=== PATIENT | male | born 1955 | race Caucasian/White ===

== ENCOUNTER 2019-06-14 16:42 | Emergency (ER) | payer MEDICAID, OTHER ==
[~2019-06-14] VITALS: Ht 177.8 cm; Wt 63.5 kg
[2019-06-14 17:01] VITALS: BP 114/70
[2019-06-14] MEDS ORDERED: SODIUM CHLORIDE 0.9% 1,000 ML IV ONE (17:20)
[2019-06-14] MEDS ORDERED: ALBUTEROL SULF 2.5 MG/0.5ML(0.5%) NEB SOLN NEB ONE (17:30)
[2019-06-14] MEDS ORDERED: methylPREDNISolone SOD SUCC 125 MG/2 ML VL IV ONE (17:30)
[2019-06-14] MEDS ORDERED: IPRATROPIUM BROM 0.5 MG/2.5ML INH SOL NEB ONE (17:30)
[2019-06-14 18:00] LABS: Basophils # (auto) 0 uL; Basophils % (auto) 0.4 % (0.0-2.0); Eosinophils # (auto) 0.1 uL; Eosinophils % (auto) 0.5 % (0.0-7.0); Hematocrit 49.6 % (41.0-53.0); Hemoglobin 16.6 g/dL (13.5-17.5); Lymphocytes # (auto) 1.5 uL; Mean Corpuscular Hemoglobin 29.5 pg (28.0-32.0); Mean Corpuscular Hgb Conc. 33.5 g/dL (32.0-36.0); Mean Corpuscular Volume 87.9 fL (80.0-100.0); Monocytes # (auto) 1.5 uL; Neutrophils # (auto) 9.6 uL; Neutrophils % (auto) 75.1 % (37.0-80.0); Nucleated Red Blood Cells % 0.1 %; Platelet Count (auto) 268 10^3/uL (140-450); Red Blood Cells 5.64 10^6/uL (4.5-5.90); Red Cell Distribution Width 14.9 % (11.8-14.3); White Blood Cell 12.8 10^3/uL (4.4-10.8)
[2019-06-14 18:15] LABS: Albumin 3.6 g/dL (3.4-5.0); Calcium 9.3 mg/dL (8.5-10.1)
[2019-06-14 18:17] LABS: BUN/Creatinine Ratio 13.6
[2019-06-14 18:19] LABS: Bilirubin, Total 0.7 mg/dL (0.2-1.0); Total Protein 7.7 g/dL (6.4-8.2)
[2019-06-15] MEDS ORDERED: ATOR10TA52 PO (16:58)
[2019-06-15] MEDS ORDERED: CHOL20007 PO (16:58)
[2019-06-15] MEDS ORDERED: IPRAAER6 IN (19:08)
[2019-06-15] MEDS ORDERED: BUDE1POW9 XX (19:08)
== END 2019-06-14 20:10 | disposition home or self-care (01) ==
LOC: EDBD 16:42 → ER 16:50
DX: J44.1 Chronic obstructive pulmonary disease with (acute) exacerbation (principal); F17.210 Nicotine dependence, cigarettes, uncomplicated
CPT/HCPCS: 36415; 71045; 80053; 85025; 93005

== ENCOUNTER 2019-06-15 11:20 | Inpatient (IN) | payer MEDICAID ==
[~2019-06-15] VITALS: Ht 182.9 cm; Wt 60.4 kg
[2019-06-15] MEDS ORDERED: SODIUM CHLORIDE 0.9% 1,000 ML IV ONE (11:33)
[2019-06-15] MEDS ORDERED: cefTRIAXone 1GM/50ML D5W 50 ML IV ONE (11:45)
[2019-06-15] MEDS ORDERED: IPRATROPIUM BROM 0.5 MG/2.5ML INH SOL NEB ONE (11:45)
[2019-06-15] MEDS ORDERED: ALBUTEROL SULF 2.5 MG/0.5ML(0.5%) NEB SOLN NEB ONE (11:45)
[2019-06-15] MEDS ORDERED: AZITHROMYCIN 500MG/ 250ML 250 ML IV ONE (11:45)
[2019-06-15] MEDS ORDERED: methylPREDNISolone SOD SUCC 125 MG/2 ML VL IV ONE (11:45)
[2019-06-15 12:13] LABS: Basophils # (auto) 0.1 uL; Basophils % (auto) 0.6 % (0.0-2.0); Eosinophils # (auto) 0 uL; Hematocrit 47.4 % (41.0-53.0); Lymphocytes # (auto) 1.7 uL; Lymphocytes % (auto) 8.9 % (10.0-50.0); Mean Corpuscular Hemoglobin 29.7 pg (28.0-32.0); Mean Corpuscular Hgb Conc. 33.7 g/dL (32.0-36.0); Mean Corpuscular Volume 87.9 fL (80.0-100.0); Monocytes # (auto) 2.5 uL; Neutrophils % (auto) 77.5 % (37.0-80.0); Nucleated Red Blood Cells % 0.1 %; Platelet Count (auto) 253 10^3/uL (140-450); Red Cell Distribution Width 14.8 % (11.8-14.3); White Blood Cell 19.3 10^3/uL (4.4-10.8)
[2019-06-15 12:31] LABS: Alanine Aminotransferase 15 U/L (16-61); Albumin 3.4 g/dL (3.4-5.0); Anion Gap 8 (5-15); Aspartate Aminotransferase 23 U/L (15-37); Blood Urea Nitrogen 12 mg/dL (7-18); Calcium 9.1 mg/dL (8.5-10.1); Carbon Dioxide 26 mmol/L (21-32); Chloride 103 mmol/L (98-107); Glucose 136 mg/dL (74-106); Sodium 137 mmol/L (136-145)
[2019-06-15 12:35] LABS: INR 1.14 (0.9-1.15); Partial Thromboplastin Time 25.5 sec (23.64-32.05)
[2019-06-15 12:36] LABS: Alkaline Phosphatase 94 U/L (45-117); BUN/Creatinine Ratio 12.2; GFR African American 99 mL/min; GFR Non-African American 82 mL/min; Total Protein 7.8 g/dL (6.4-8.2)
[2019-06-15 12:39] LABS: Potassium 4.3 mmol/L (3.5-5.1)
[2019-06-15] MEDS ORDERED: ACETAMINOPHEN 500 MG TAB PO PRN (14:15)
[2019-06-15] MEDS ORDERED: NITROGLYCERIN 0.4 MG SL TAB SL PRN (14:15)
[2019-06-15] MEDS ORDERED: MORPHINE SULF INJ 2 MG/ML SYRINGE 1ML IV PRN (14:15)
[2019-06-15] MEDS ORDERED: traMADol HCL 50 MG TAB PO PRN (14:15)
[2019-06-15] MEDS ORDERED: DEXTROSE (50%) 50ML SYRG IV PRN (14:15)
[2019-06-15] MEDS ORDERED: LACTULOSE 20Gm/30ML SOLN PO PRN (14:15)
[2019-06-15] MEDS ORDERED: TEMAZEPAM 15 MG CAP PO PRN (14:15)
[2019-06-15] MEDS ORDERED: ALBUTEROL SULF 2.5 MG/0.5ML(0.5%) NEB SOLN NEB PRN (14:15)
[2019-06-15] MEDS ORDERED: PROMETHAZINE HCL 25 MG/ML 1ML IV PRN (14:15)
[2019-06-15 14:17] LABS: Urine Bacteria NONE SEEN /hpf (None Seen); Urine Blood TRACE /uL (Negative); Urine Mucus FEW (None Seen); Urine WBC 1 /hpf (0 - 3)
[2019-06-15] MEDS: SODIUM CHLORIDE 0.9% 1,000 ML IV SCH (14:40)
--- NOTE | 2019-06-15 16:05 | NUR ---
Telemetry admit from ER COLIN KANG admitted to Telemetry unit after SBAR received. Patient oriented to Bianca Toledo, primary RN, unit, room, bed, and unit policies regarding patient care and visiting hours. Patient now on continuous telemetry monitoring, tele box #HC 17 and telemetry reading on arrival to unit is SINUS TACHYCARDIA 106 BPM WITH BBB. All questions and concerns addressed, patient verbalized understanding. Bed locked in the lowest position. Bed rails up up x2. Call light in reach.
[2019-06-15 16:50] VITALS: BP 122/81
[2019-06-15] MEDS ORDERED: CHOL20007 PO (16:58)
[2019-06-15] MEDS ORDERED: ATOR10TA52 PO (16:58)
[2019-06-15] MEDS: ACCU-CHEK COMFORT CURVE STRIP VI SCH ×2 (17:34→21:40)
[2019-06-15] MEDS: methylPREDNISolone SOD SUCC 40 MG/ML VL IV SCH ×2 (17:35→23:58)
[2019-06-15] MEDS: ALBUTEROL SULF 2.5 MG/0.5ML(0.5%) NEB SOLN NEB SCH (18:46)
[2019-06-15] MEDS: IPRATROPIUM BROM 0.5 MG/2.5ML INH SOL NEB SCH (18:46)
--- NOTE | 2019-06-15 18:48 | NUR ---
CLOSING NOTE Patient is awake and alert. No S/S of distress/SOB or pain. Bed locked in the lowest position. Bed rails up x2. Call light in reach. Will endorse care to night nurse.
[2019-06-15] MEDS ORDERED: BUDE1POW9 XX (19:08)
[2019-06-15] MEDS ORDERED: IPRAAER6 IN (19:08)
--- NOTE | 2019-06-15 19:23 | NUR ---
Opening Shift Note Assumed care of patient, awake and alert x4. No S/S of distress/SOB or pain. Call light is within reach, bed is in lowest position, side rails up x3. Instructed on POC and to call for assist PRN. All questions and concerns answered, will continue to monitor for changes Q1hr and PRN.
[2019-06-15 22:36] VITALS: BP 127/75
[2019-06-15 23:23] VITALS: BP 127/75
[2019-06-16] MEDS: ALBUTEROL SULF 2.5 MG/0.5ML(0.5%) NEB SOLN NEB SCH ×5 (00:18→23:40)
[2019-06-16] MEDS: IPRATROPIUM BROM 0.5 MG/2.5ML INH SOL NEB SCH ×5 (00:18→23:39)
[2019-06-16] MEDS: SODIUM CHLORIDE 0.9% 1,000 ML IV SCH ×2 (02:15→17:26)
[2019-06-16 05:26] VITALS: BP 128/19
[2019-06-16] MEDS: methylPREDNISolone SOD SUCC 40 MG/ML VL IV SCH ×4 (06:01→23:20)
[2019-06-16 06:15] LABS: Basophils # (auto) 0 uL; Basophils % (auto) 0.1 % (0.0-2.0); Eosinophils # (auto) 0 uL; Hematocrit 41.3 % (41.0-53.0); Hemoglobin 14.2 g/dL (13.5-17.5); Lymphocytes # (auto) 0.6 uL; Lymphocytes % (auto) 5.1 % (10.0-50.0); Mean Corpuscular Hgb Conc. 34.3 g/dL (32.0-36.0); Mean Corpuscular Volume 87.3 fL (80.0-100.0); Monocytes # (auto) 0.3 uL; Monocytes % (auto) 2.2 % (0.0-12.0); Neutrophils # (auto) 11.2 uL; Neutrophils % (auto) 92.6 % (37.0-80.0); Platelet Count (auto) 220 10^3/uL (140-450); Red Blood Cells 4.74 10^6/uL (4.5-5.90); Red Cell Distribution Width 14.5 % (11.8-14.3); White Blood Cell 12.1 10^3/uL (4.4-10.8)
[2019-06-16] MEDS: ACCU-CHEK COMFORT CURVE STRIP VI SCH ×4 (07:00→22:34)
--- NOTE | 2019-06-16 07:30 | NUR ---
Opening Shift Note Assumed care of patient. Patient is awake and alert. No S/S of distress/SOB or pain. Instructed on POC and to call for assist PRN, will continue to monitor. Bed locked in the lowest position. Bed rails up x2. Call light in reach.
[2019-06-16 08:56] VITALS: BP 104/61
[2019-06-16] MEDS: LEVOFLOXACIN 500MG 100 ML IV SCH (09:33)
[2019-06-16] MEDS: ENOXAPARIN SOD 40 MG/0.4 ML SYRINGE SC SCH (09:34)
[2019-06-16] MEDS: PANTOPRAZOLE 40 MG TAB PO SCH (09:35)
[2019-06-16 13:00] VITALS: BP 110/70
[2019-06-16 16:58] VITALS: BP 119/71
--- NOTE | 2019-06-16 18:54 | NUR ---
CLOSING NOTE Patient is awake and alert. No S/S of distress/SOB or pain. Bed locked in the lowest position. Bed rails up x2. Call light in reach. Will endorsed care to night RN.
--- NOTE | 2019-06-16 19:13 | NUR ---
Opening Shift Note Assumed care of patient, awake and alert x4. Call light is within reach, side rails up x2, bed is in the lowest position, urinal is within reach. No S/S of distress/SOB or pain. Instructed on POC and to call for assist PRN. All questions and concerns answered, will continue to monitor for changes Q1hr and PRN.
[2019-06-16 22:51] VITALS: BP 116/71
[2019-06-17 05:18] VITALS: BP 118/69
[2019-06-17 06:12] LABS: Basophils # (auto) 0 uL; Basophils % (auto) 0.1 % (0.0-2.0); Eosinophils # (auto) 0 uL; Hematocrit 39.8 % (41.0-53.0); Hemoglobin 13.2 g/dL (13.5-17.5); Lymphocytes # (auto) 0.7 uL; Lymphocytes % (auto) 3.6 % (10.0-50.0); Mean Corpuscular Hemoglobin 29.4 pg (28.0-32.0); Mean Corpuscular Hgb Conc. 33.1 g/dL (32.0-36.0); Mean Corpuscular Volume 88.7 fL (80.0-100.0); Monocytes # (auto) 0.7 uL; Monocytes % (auto) 3.3 % (0.0-12.0); Neutrophils # (auto) 19.4 uL; Nucleated Red Blood Cells % 0.2 %; Platelet Count (auto) 228 10^3/uL (140-450); Red Blood Cells 4.49 10^6/uL (4.5-5.90); Red Cell Distribution Width 14.7 % (11.8-14.3); White Blood Cell 20.9 10^3/uL (4.4-10.8)
[2019-06-17] MEDS: ACCU-CHEK COMFORT CURVE STRIP VI SCH ×3 (06:38→18:05)
[2019-06-17] MEDS: SODIUM CHLORIDE 0.9% 1,000 ML IV SCH (06:38)
[2019-06-17] MEDS: methylPREDNISolone SOD SUCC 40 MG/ML VL IV SCH ×3 (06:38→18:06)
[2019-06-17 06:47] LABS: Potassium 4.3 mmol/L (3.5-5.1)
[2019-06-17 06:49] LABS: BUN/Creatinine Ratio 15.9
[2019-06-17] MEDS: ALBUTEROL SULF 2.5 MG/0.5ML(0.5%) NEB SOLN NEB SCH ×3 (06:58→18:30)
[2019-06-17] MEDS: IPRATROPIUM BROM 0.5 MG/2.5ML INH SOL NEB SCH ×3 (06:58→18:29)
[2019-06-17 09:14] VITALS: BP 149/76
[2019-06-17] MEDS: PANTOPRAZOLE 40 MG TAB PO SCH (10:12)
[2019-06-17] MEDS: LEVOFLOXACIN 500MG 100 ML IV SCH (10:12)
[2019-06-17] MEDS: ENOXAPARIN SOD 40 MG/0.4 ML SYRINGE SC SCH (10:12)
--- NOTE | 2019-06-17 12:10 | NUR ---
MARCELLA BS 122.
[2019-06-17 13:00] VITALS: BP_SYST 123; BP_SYST 71; BP_DIAS 71; BP_DIAS 76
--- NOTE | 2019-06-17 16:04 | NUR ---
Per consult for home health and home O2 at 2 liters by continuous nasal cannula. Contacted [facility] ph: ) Fax: ) faxed medical records. Per Catrina from [facility] pt has been accepted and service to start within 48hrs upon d/c. Contacted [facility] Ph: ) Fax: ) faxed medical records. Per Jose from & pt qualifies for oxygen home O2. Per Jose from & home O2 will be deliver at bed side today 06/17/19 as soon as they receive authorization number. Informed [employer] Lori for authorization number. Informed Pt at bed side and provided him with information regarding acceptance for home health and qualification for home O2. Pt verbalize and agrees d/c plan and informed RAMIREZ Shetty regarding home health and equipment. Addendum: 06/17/19 at 1623 by YOLI VARELA Amended: Links added.
--- NOTE | 2019-06-17 16:08 | NUR ---
I faxed home health/home oxygen order to [facility] requesting authorization for [facility] as well as [facility].
--- NOTE | 2019-06-17 16:33 | NUR ---
PATIENT O2 ON ABG 57.4. PATIENT QUALIFIES FOR HOME OXYGEN. REJI IN CASE MANAGEMENT REPORTS PT HAS ILAN LIGHT AND PT IS CLEARED TO GO ONCE HOME O2 IS DELIVERED TO PATIENT ROOM. CALLED AND LEFT MESSAGE FOR DR FANG NOTIFYING PATIENT QUALIFIED. Addendum: 06/17/19 at 1639 by COBY IBARRA RN [facility] LOPEZ REPORTS PT QUALIFIED FOR HOME O2.
--- NOTE | 2019-06-17 16:46 | NUR ---
I received a call from Lucila at [facility] [phone]-the authorization for is [id number] and the authorization for [facility] is [id number]. Addendum: 06/17/19 at 1649 by Lori Samuel RN Phone number for Lucila from [facility] is [phone].
[2019-06-17 17:05] VITALS: BP 131/73
--- NOTE | 2019-06-17 17:07 | NUR ---
I called [facility], they already have the authorization number and will deliver portable oxygen to patient's bedside within 2 hours-I relayed this information to nurse Sena.
[2019-06-17 17:16] VITALS: BP 131/73
--- NOTE | 2019-06-17 17:50 | NUR ---
ACCUCHECK IS 103, NO COVERAGE GIVEN PER MD ORDER.
--- NOTE | 2019-06-17 19:00 | NUR ---
HOME 02 DELIVERED TO PATIENT ROOM. PT IS NOW CLEARED FOR DISCHARGE.
--- NOTE | 2019-06-17 19:21 | NUR ---
Discharge instructions given as ordered. Encourage to follow up with PMD as instructed. All questions and concerns addressed. Patient verbalized understanding. Medication reconciliation form completed and copy given to patient. Home medications held in Pharmacy returned to patient. IV removed with catheter intact, pressure dressing applied. Telemetry unit returned to ICU. Patient taken to vehicle via wheelchair with all personal belongings, accompanied by staff and friend. No distress noted at time of departure.
== END 2019-06-17 19:00 | disposition home health service (06) | DRG 140 ==
LOC: ER 11:22 → TELE 11:23 → TELE-WESTW 16:05
PROVIDERS: ADMIT Internal Medicine; ATTEND Internal Medicine
DX: J44.0 Chronic obstructive pulmonary disease with (acute) lower respiratory infection (principal); J96.01 Acute respiratory failure with hypoxia; J44.1 Chronic obstructive pulmonary disease with (acute) exacerbation; E78.5 Hyperlipidemia, unspecified; F17.210 Nicotine dependence, cigarettes, uncomplicated; J20.9 Acute bronchitis, unspecified
CPT/HCPCS: 36415; 36600; 71045; 80048; 80053; 81001; 82805; 82962; 83036; 83605; 83880; 84484; 85025; 85610; 85730; 87040; 87070; 87086; 87205; 93005; 94640; 96365; 96366; 96368; 96375; G0378; J0696; J1956

== ENCOUNTER 2019-06-26 10:19 | Emergency (ER) | payer MEDICAID ==
[~2019-06-26] VITALS: Ht 182.9 cm; Wt 59.0 kg
[~2019-06-26 10:19] MED LIST: ATOR10TA52 PO; BUDE1POW9 XX; CHOL20007 PO; IPRAAER6 IN
[2019-06-26 11:19] LABS: Hematocrit 45.7 % (41.0-53.0); Hemoglobin 15.2 g/dL (13.5-17.5); Mean Corpuscular Hemoglobin 29.6 pg (28.0-32.0); Mean Corpuscular Hgb Conc. 33.3 g/dL (32.0-36.0); Mean Corpuscular Volume 88.7 fL (80.0-100.0); Platelet Count (auto) 265 10^3/uL (140-450); Red Blood Cells 5.15 10^6/uL (4.5-5.90); Red Cell Distribution Width 15.6 % (11.8-14.3); White Blood Cell 16.4 10^3/uL (4.4-10.8)
[2019-06-26 11:30] LABS: Basophils % (manual) 0 (0.0-2.0); Blast Cells 0; Eosinophils % (manual) 0 (0-7); Metamyelocytes % 0; Myelocytes % 0; Promyelocytes % 0; Reactive Lymphocytes 0
[2019-06-26 12:32] LABS: Chloride 104 mmol/L (98-107); Potassium 4.5 mmol/L (3.5-5.1); Sodium 142 mmol/L (136-145)
[2019-06-26 12:33] LABS: Alkaline Phosphatase 67 U/L (45-117); Anion Gap 7 (5-15); BUN/Creatinine Ratio 26.1; Bilirubin, Total 0.4 mg/dL (0.2-1.0); Blood Urea Nitrogen 23 mg/dL (7-18); Calcium 8.4 mg/dL (8.5-10.1); Carbon Dioxide 31 mmol/L (21-32); GFR African American 112 mL/min; GFR Non-African American 93 mL/min; Glucose 87 mg/dL (74-106); Total Protein 6.4 g/dL (6.4-8.2)
[2019-06-26 12:34] LABS: Alanine Aminotransferase 38 U/L (16-61); Aspartate Aminotransferase 16 U/L (15-37)
[2019-06-26 12:42] LABS: Band Neutrophils % (manual) 2; Lymphocytes % (manual) 21 (10.0-50.0); Monocytes % (manual) 5 (0-12)
[2019-06-26 13:30] VITALS: BP 91/65
== END 2019-06-26 14:04 | disposition home or self-care (01) ==
LOC: EDBD 10:19 → ER 10:19
DX: R07.89 Other chest pain (principal); J44.9 Chronic obstructive pulmonary disease, unspecified; F17.210 Nicotine dependence, cigarettes, uncomplicated; Z79.899 Other long term (current) drug therapy
CPT/HCPCS: 36415; 71046; 80053; 84484; 85007; 85027; 93005

== ENCOUNTER 2019-07-13 18:55 | Inpatient (IN) | payer MEDICAID ==
[~2019-07-13] VITALS: Ht 182.9 cm; Wt 60.7 kg
[2019-07-13 20:13] LABS: Basophils # (auto) 0.1 uL; Eosinophils # (auto) 0.8 uL; Hematocrit 47.8 % (41.0-53.0); Hemoglobin 16.2 g/dL (13.5-17.5); Lymphocytes # (auto) 1.9 uL; Lymphocytes % (auto) 23.5 % (10.0-50.0); Mean Corpuscular Hemoglobin 29.6 pg (28.0-32.0); Mean Corpuscular Hgb Conc. 33.8 g/dL (32.0-36.0); Mean Corpuscular Volume 87.5 fL (80.0-100.0); Monocytes # (auto) 0.8 uL; Monocytes % (auto) 10.3 % (0.0-12.0); Neutrophils # (auto) 4.5 uL; Neutrophils % (auto) 55.2 % (37.0-80.0); Nucleated Red Blood Cells % 0.1 %; Platelet Count (auto) 338 10^3/uL (140-450); Red Blood Cells 5.47 10^6/uL (4.5-5.90); White Blood Cell 8.1 10^3/uL (4.4-10.8)
[2019-07-13 20:35] LABS: Alanine Aminotransferase 21 U/L (16-61); Albumin 3.9 g/dL (3.4-5.0); Anion Gap 7 (5-15); Aspartate Aminotransferase 18 U/L (15-37); Blood Urea Nitrogen 12 mg/dL (7-18); Calcium 9.3 mg/dL (8.5-10.1); Carbon Dioxide 27 mmol/L (21-32); Chloride 104 mmol/L (98-107); Glucose 102 mg/dL (74-106); Magnesium 2.4 mg/dL (1.6-2.6); Potassium 4.2 mmol/L (3.5-5.1); Sodium 138 mmol/L (136-145)
[2019-07-13 20:38] LABS: Alkaline Phosphatase 102 U/L (45-117); BUN/Creatinine Ratio 13.8; Bilirubin, Total 0.5 mg/dL (0.2-1.0); GFR African American 114 mL/min; GFR Non-African American 94 mL/min; Total Protein 8.1 g/dL (6.4-8.2)
[2019-07-13] MEDS ORDERED: ALBUTEROL SULF 2.5 MG/0.5ML(0.5%) NEB SOLN HHN ONE (21:15)
[2019-07-13] MEDS ORDERED: methylPREDNISolone SOD SUCC 125 MG/2 ML VL IV ONE (21:15)
[2019-07-13] MEDS ORDERED: IPRATROPIUM BROM 0.5 MG/2.5ML INH SOL HHN ONE (21:15)
[2019-07-13 21:19] LABS: INR 1.06 (0.9-1.15); Partial Thromboplastin Time 29.9 sec (23.64-32.05)
[2019-07-13 22:11] LABS: Basophils # (auto) 0.1 uL; Basophils % (auto) 0.9 % (0.0-2.0); Eosinophils # (auto) 0.6 uL; Eosinophils % (auto) 5.4 % (0.0-7.0); Hematocrit 49.5 % (41.0-53.0); Hemoglobin 16.7 g/dL (13.5-17.5); Lymphocytes # (auto) 2.6 uL; Lymphocytes % (auto) 22.7 % (10.0-50.0); Mean Corpuscular Hemoglobin 29.7 pg (28.0-32.0); Mean Corpuscular Hgb Conc. 33.6 g/dL (32.0-36.0); Mean Corpuscular Volume 88.4 fL (80.0-100.0); Monocytes # (auto) 0.9 uL; Monocytes % (auto) 8.3 % (0.0-12.0); Neutrophils # (auto) 7.1 uL; Neutrophils % (auto) 62.7 % (37.0-80.0); Nucleated Red Blood Cells % 0.1 %; Platelet Count (auto) 335 10^3/uL (140-450); Red Blood Cells 5.61 10^6/uL (4.5-5.90); Red Cell Distribution Width 15.2 % (11.8-14.3); White Blood Cell 11.3 10^3/uL (4.4-10.8)
[2019-07-13] MEDS ORDERED: cefTRIAXone 1GM/50ML D5W 50 ML IV ONE (22:30)
[2019-07-13] MEDS ORDERED: ONDANSETRON HCL 4 MG/2 ML VIAL IV PRN (23:15)
[2019-07-13] MEDS ORDERED: HYDROcodone-ACET 5/325MG TAB PO PRN (23:15)
[2019-07-13] MEDS ORDERED: ACETAMINOPHEN 325 MG TAB PO PRN (23:15)
[2019-07-13] MEDS ORDERED: TEMAZEPAM 15 MG CAP PO PRN (23:15)
[2019-07-13 23:56] VITALS: BP 122/61
[2019-07-14 00:03] VITALS: BP 148/91
--- NOTE | 2019-07-14 00:03 | NUR ---
MS admit from ER COLIN KANG admitted to MS after hand off tool received. Patient oriented to primary RN, unit, room, bed, and unit policies regarding patient care and visiting hours. Patient weighed by bedscale and encouraged to call if they need something. All questions and concerns addressed, patient verbalized understanding.
--- NOTE | 2019-07-14 00:10 | NUR ---
UA sample obtained sent to lab via bullet.
--- NOTE | 2019-07-14 00:30 | NUR ---
Respiratory therapist at bedside with breathing treatment.
[2019-07-14] MEDS: ALBUTEROL SULF 2.5 MG/0.5ML(0.5%) NEB SOLN NEB SCH ×6 (00:37→22:39)
[2019-07-14] MEDS: IPRATROPIUM BROM 0.5 MG/2.5ML INH SOL NEB SCH ×6 (00:38→22:39)
--- NOTE | 2019-07-14 00:46 | NUR ---
MRSA specimen sample obtained, sent to lab via bullet.
[2019-07-14 01:33] LABS: Urine Bacteria NONE SEEN /hpf (None Seen); Urine Blood Negative /uL (Negative); Urine Specific Gravity 1.009 (1.001-1.035); Urine WBC <1 /hpf (0 - 3)
[2019-07-14 05:00] VITALS: BP 102/74
[2019-07-14 06:20] LABS: Basophils # (auto) 0 uL; Basophils % (auto) 0.6 % (0.0-2.0); Eosinophils # (auto) 0 uL; Eosinophils % (auto) 0.3 % (0.0-7.0); Hematocrit 48.4 % (41.0-53.0); Hemoglobin 16.4 g/dL (13.5-17.5); Lymphocytes # (auto) 0.5 uL; Mean Corpuscular Hemoglobin 29.9 pg (28.0-32.0); Mean Corpuscular Hgb Conc. 33.8 g/dL (32.0-36.0); Mean Corpuscular Volume 88.5 fL (80.0-100.0); Monocytes # (auto) 0.1 uL; Monocytes % (auto) 1.7 % (0.0-12.0); Neutrophils # (auto) 5.1 uL; Neutrophils % (auto) 89.4 % (37.0-80.0); Platelet Count (auto) 302 10^3/uL (140-450); Red Blood Cells 5.47 10^6/uL (4.5-5.90); Red Cell Distribution Width 14.9 % (11.8-14.3); White Blood Cell 5.7 10^3/uL (4.4-10.8)
[2019-07-14 06:39] LABS: BUN/Creatinine Ratio 14.3; Calcium 9.6 mg/dL (8.5-10.1); Potassium 5.2 mmol/L (3.5-5.1)
[2019-07-14] MEDS: BUDESONIDE (INHALATION) 0.5 MG/2 ML NEB NEB SCH ×2 (06:39→19:13)
--- NOTE | 2019-07-14 08:00 | NUR ---
Opening Shift Note Assumed care of patient, awake, alert and oriented X4. No S/S of distress/SOB or pain. O2 @ 2 LPM via nasal cannula with sats @ 96%. IV to left forearm, 20 gauge, patent and saline locked. Instructed on POC and to call for assist PRN, verbalized understanding. Bed locked, in lowest position, call light within reach, will continue to monitor for changes Q1hr and PRN.
[2019-07-14 08:52] VITALS: BP 96/77
[2019-07-14] MEDS: FAMOTIDINE 20 MG TAB PO SCH ×2 (09:30→21:12)
[2019-07-14] MEDS ORDERED: methylPREDNISolone SOD SUCC 125 MG/2 ML VL IV SCH (10:00)
--- NOTE | 2019-07-14 10:57 | NUR ---
ROUNDS Dr Vásquez at bedside for rounds, new orders received and followed through. Patient updated on plan of care, verbalized understanding.
[2019-07-14 12:26] VITALS: BP 113/87
[2019-07-14] MEDS: methylPREDNISolone SOD SUCC 40 MG/ML VL IV SCH ×2 (13:56→21:12)
[2019-07-14 16:12] VITALS: BP 92/74
--- NOTE | 2019-07-14 19:04 | NUR ---
Care endorsed to RAMIREZ Hernández, night nurse. Addendum: 07/14/19 at 1912 by Lucina Antoine RN Care endorsed to RAMIREZ Negrete, night nurse.
--- NOTE | 2019-07-14 19:30 | NUR ---
RECEIVED PT FROM DAY RN POC REVIEWED
[2019-07-14] MEDS: cefTRIAXone 1GM/50ML D5W 50 ML IV SCH (21:12)
[2019-07-14 22:00] VITALS: BP_SYST 124; BP_SYST 134; BP_DIAS 48; BP_DIAS 75
--- NOTE | 2019-07-15 01:27 | NUR ---
RESTING WITH EYES CLOSED RESP EVEN AND UNLABORED, RESTING WITH EYES CLOSED CALL LIGHT WITHIN REACH
[2019-07-15] MEDS: ALBUTEROL SULF 2.5 MG/0.5ML(0.5%) NEB SOLN NEB SCH ×6 (02:22→22:12)
[2019-07-15] MEDS: IPRATROPIUM BROM 0.5 MG/2.5ML INH SOL NEB SCH ×6 (02:22→22:12)
[2019-07-15 05:00] VITALS: BP_SYST 100; BP_SYST 135; BP_DIAS 56; BP_DIAS 69
[2019-07-15 05:17] LABS: Basophils # (auto) 0 uL; Basophils % (auto) 0.2 % (0.0-2.0); Eosinophils # (auto) 0 uL; Hematocrit 42.7 % (41.0-53.0); Hemoglobin 14.6 g/dL (13.5-17.5); Lymphocytes # (auto) 0.7 uL; Mean Corpuscular Hgb Conc. 34.1 g/dL (32.0-36.0); Mean Corpuscular Volume 88.1 fL (80.0-100.0); Monocytes # (auto) 0.9 uL; Monocytes % (auto) 4.9 % (0.0-12.0); Neutrophils # (auto) 16.2 uL; Neutrophils % (auto) 90.9 % (37.0-80.0); Platelet Count (auto) 281 10^3/uL (140-450); Red Blood Cells 4.85 10^6/uL (4.5-5.90); White Blood Cell 17.8 10^3/uL (4.4-10.8)
[2019-07-15 05:39] LABS: Calcium 9.1 mg/dL (8.5-10.1); Magnesium 2.3 mg/dL (1.6-2.6); Potassium 4.2 mmol/L (3.5-5.1)
[2019-07-15 05:41] LABS: BUN/Creatinine Ratio 20.8
[2019-07-15] MEDS: methylPREDNISolone SOD SUCC 40 MG/ML VL IV SCH ×3 (06:05→20:34)
--- NOTE | 2019-07-15 06:54 | NUR ---
report given to am nurse poc reviewed
--- NOTE | 2019-07-15 07:15 | NUR ---
Opening Shift Note Assumed care of patient, awake and alert x4, sitting up in bed watching television. No S/S of distress or SOB, no pain noted or reported at this time. Respirations are even and unlabored on 2L O2 via NC. Updated on POC and instructed to call for assistance as needed, pt. verbalized understanding. Bed locked in lowest position, side rails up x2, call light within reach. Will continue to monitor qh1 and PRN.
[2019-07-15 09:00] VITALS: BP 122/68
[2019-07-15] MEDS: FAMOTIDINE 20 MG TAB PO SCH ×2 (09:19→20:27)
[2019-07-15] MEDS: BUDESONIDE (INHALATION) 0.5 MG/2 ML NEB NEB SCH ×2 (10:28→22:12)
[2019-07-15 12:43] VITALS: BP 107/72
--- NOTE | 2019-07-15 13:20 | NUR ---
Pagealicia Yanez Regarding patient requesting nicotine patch.
[2019-07-15] MEDS ORDERED: NICOTINE 21MG/24 HR TOPICAL PATCH TD ONE (13:45)
[2019-07-15 17:00] VITALS: BP 120/78
--- NOTE | 2019-07-15 19:40 | NUR ---
RECEIVED PT FROM DAY RN POC REVIEWED
[2019-07-15] MEDS: cefTRIAXone 1GM/50ML D5W 50 ML IV SCH (20:34)
[2019-07-15 21:39] VITALS: BP 122/66
--- NOTE | 2019-07-16 01:13 | NUR ---
RESTING WITH EYES CLOSED RESP EVEN AND UNLABORED, CALL LIGHT WITHIN REACH
[2019-07-16] MEDS: IPRATROPIUM BROM 0.5 MG/2.5ML INH SOL NEB SCH ×4 (02:17→14:05)
[2019-07-16] MEDS: ALBUTEROL SULF 2.5 MG/0.5ML(0.5%) NEB SOLN NEB SCH ×4 (02:17→14:05)
[2019-07-16 05:27] VITALS: BP 104/63
[2019-07-16] MEDS: BUDESONIDE (INHALATION) 0.5 MG/2 ML NEB NEB SCH (05:43)
--- NOTE | 2019-07-16 06:05 | NUR ---
[facility]WO[facility] AM CARE GIVEN NO C/O PAIN OR RESP DISTRESS, AM MEDS GIVEN
[2019-07-16] MEDS: methylPREDNISolone SOD SUCC 40 MG/ML VL IV SCH ×2 (06:11→13:21)
--- NOTE | 2019-07-16 06:43 | NUR ---
REPORT GIVEN TO AM NURSE POC REVIEWED
--- NOTE | 2019-07-16 07:20 | NUR ---
Opening Shift Note Assumed care of patient, awake and alert. No S/S of distress/SOB or pain. Instructed on POC and to call for assist PRN, will continue to monitor for changes Q1hr and PRN. Bed locked in lowest position with two side rails up and call light in reach.
[2019-07-16 08:00] VITALS: BP 125/82
[2019-07-16 08:38] VITALS: BP 125/82
[2019-07-16] MEDS: FAMOTIDINE 20 MG TAB PO SCH (09:55)
[2019-07-16 12:40] VITALS: BP 133/77
[2019-07-16] MEDS ORDERED: LEVOFLOXACIN 500 MG TAB PO ONE (14:30)
--- NOTE | 2019-07-16 16:20 | NUR ---
Discharge instructions given as ordered. Encourage to follow up with PMD as instructed. All questions and concerns addressed. Patient verbalized understanding. Medication reconciliation form completed and copy given to patient. No Home medications held in Pharmacy and none to be returned to patient, and no needed vaccines given. IV removed with catheter intact, pressure dressing applied. Patient taken to vehicle via wheelchair with all personal belongings, accompanied by staff and family member. No distress noted at time of departure. Prescriptions in hand.
--- NOTE | 2019-07-16 16:23 | NUR ---
Pt requested an Advance Directive. Pt stated he was familiar with filling one out. Pt states he did not have any questions.
== END 2019-07-16 16:30 | disposition home or self-care (01) | DRG 140 ==
LOC: ER 18:55 → OVERFLOW 18:56 → WEST WING 23:42
PROVIDERS: ADMIT Nurse Practitioner; ATTEND Internal Medicine
DX: J44.0 Chronic obstructive pulmonary disease with (acute) lower respiratory infection (principal); J96.20 Acute and chronic respiratory failure, unspecified whether with hypoxia or hypercapnia; R64 Cachexia; E44.1 Mild protein-calorie malnutrition; J44.1 Chronic obstructive pulmonary disease with (acute) exacerbation; D72.829 Elevated white blood cell count, unspecified; I10 Essential (primary) hypertension; J20.9 Acute bronchitis, unspecified; E87.5 Hyperkalemia; Z82.49 Family history of ischemic heart disease and other diseases of the circulatory system; F17.210 Nicotine dependence, cigarettes, uncomplicated; E78.5 Hyperlipidemia, unspecified; Z83.3 Family history of diabetes mellitus; Z99.81 Dependence on supplemental oxygen; Z68.1 Body mass index [BMI] 19.9 or less, adult
CPT/HCPCS: 36415; 71045; 80048; 80053; 81001; 83605; 83735; 83880; 84484; 85025; 85610; 85730; 87040; 87081; 93005; 94640; 96374; 97116; 97163; 97530; G0378; J0696